=== PATIENT | female | born 1960 | race Caucasian/White ===

== ENCOUNTER 2019-11-22 17:14 | Outpatient (CLI) | payer OTHER | END 2019-11-22 17:15 | disposition home or self-care (01) | LOC: COV 17:14 | PROVIDERS: ATTEND Family Medicine | DX: R50.9 Fever, unspecified (principal); Z20.828 Contact with and (suspected) exposure to other viral communicable diseases; R06.02 Shortness of breath; R09.81 Nasal congestion; R53.83 Other fatigue; R19.7 Diarrhea, unspecified; M79.10 Myalgia, unspecified site ==

== ENCOUNTER 2022-04-21 09:39 | Outpatient (CLI) | payer OTHER ==
[2022-04-21 09:56] VITALS: BP 126/74
--- NOTE | 2022-04-21 09:56 | SLEEP CARE CONSULTATION ---
Information from patient questionnaire entered by Kody Goldman. I have reviewed and concur with the information entered by Kody Goldman. This document represents the service I personally performed and the decisions made by me, Rose Gaitan ARNP. History of Present Illness Service Date and Time: 04/21/2022 0939 Reason for Visit: New patient, Previously diagnosed sleep apnea, sleep apnea on CPAP therapy Chief Complaint: reports: Unrefreshed sleep, Snoring, Frequent awakenings at night Date of Onset: 7MONTHS Usual bedtime: 10PM Time it takes to fall asleep: DEPENDS ON THE NIGHT AND WORK SCHEDULE Snores at night: Yes Observed to quit breathing while asleep: Yes Number of times waking at night: 3-4 Reasons for waking at night: reports: Other (UNKNOWN) Toss, Turn, or Twitch while sleeping: No Recalls having dreams: No Usually gets out of bed at: 5AM Feels refreshed in the morning: No Morning headache: Yes (RESOLVES AROUND 11AM) Sleepy or fatigued during the day: Yes Ever fallen asleep while driving: Yes Takes day naps: No Dreams during day naps: No Prior sleep studies: Yes ([facility] 1994) Additional HPI information: MARILU Marquez was previously diagnosed at [facility] to have moderate (noted on Titration study dated 05-19-2018), AHI unknown, obstructive sleep apnea-hypopnea syndrome and comes in today to establish care for BIPAP therapy. She states Dr. Chávez encouraged her to do a nebulizer treatment before she goes to bed. She is able to go to sleep but will still wake up several times a night. Sometimes it is because her mask is "whistling" and other unknown reasons. She states that her oxygen saturations are dropping at night and she is snoring when on her BIPAP at night. - Parasomnia Symptoms Ever been unable to move upon waking from sleep: No Walks in sleep: No Talks in sleep: No Ever acted out dreams in sleep: No Ever felt weak in the knees when startled or emotional: No Bothered by creepy, crawly, restless sensations in legs: No Problems with memory or concentration: No CPAP Compliance Data - Data Reviewed with Patient Average duration of nightly device use: 7 hours 19 minutes Compliance rate %: 100 (30/30 days used) Current pressure setting (cmH2O): 16 max/ Epap 8 with 10 pressure support: 5 with 4 pressure support Average residual AHI: 0.4 Central apnea: 0 Obstructive apnea: 0.1 Hypopnea: 0.3 Average large leak: 0 Compliance data discussion: She states she has a Dreamstation BIPAP autoSV machine. She is using a full face, Dreamwear hybrid. She is getting her supplies from [facility]. Subjective Patient concerns: reports: mask leak noise. denies: aerophagia, mask discomfort, air blowing in eyes, condensation in mask/hose, nasal congestion, dry mouth, nose, throat, epistaxis Observed to snore while using device: Yes Current pressure setting perceived as: comfortable On therapy, patient: reports: sleeping better, awakening more refreshed, being more awake and alert during the day, more rested overall, other (cannot sleep without it). 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 Patient is and lives in [place]. Have you smoked in the past 12 months: No Years of smokin Quit date: 1993 Alcohol use: No Caffeine use: Yes Caffeine amount and frequency: 2-3 CUPS IN THE MORNING Family History Family history of sleep disordered breathing: Yes Family Hx Sleep Apnea: Father: Snoring Allergies and Home Medications Known drug allergies: Yes (IODINE; keflex) Drug allergies reviewed: Yes Home medication list reviewed: Yes (see updated list in EMR) Review of Systems Cardiovascular: reports: leg or foot swelling. denies: high blood pressure, irregular heart rate or pulse Respiratory: reports: shortness of breath, wheeze Gastrointestinal: reports: other (has reflux, controlled by diet and elevation of head/tums) Neurological: denies: headaches Psychiatric: denies: anxiety, depression Endocrine: reports: thyroid disease Physical Exam Vital signs obtained and entered by: KODY Ambrosio MA Blood Pressure: 126/74 (LEFT ARM) Cuff size: regular Heart Rate: 83 O2 Saturation: 94 Height: 5 ft 5 in Weight: 214 lb 9.6 oz Body Mass Index: 35.6 BMI Classification: Obese Neck circumference: 16.25 Heart: regular rate and rhythm Lungs: wheeze (light, distance) Impression and Plan 1. Obstructive Sleep Apnea-Hypopnea Syndrome, moderate, with good treatment compliance and good apnea control. On CPAP therapy, the patient has better sleep quality and is more rested overall. She states that since October she has been having decreasing oxygen saturations when sleeping and daytime fatigue. She did a nocturnal oximetry test but has not gotten the results from Dr. Chávez because the clinic shut down. We will try to obtain the results of this test. She states she has been having more snoring and daytime sleepiness during the day and Dr. Chávez was trying to see if her oxygen level may be the cause. She does have a history of COPD and Alpha Antitrypsin deficiency Z. I feel it would be best that she follow up with Dr. Olmstead once we have copy of her oximetry test for any adjustments of her BiPAP ASV pressure settings. Patient's apnea severity and rationale for treatment to reduce apnea, improve sleep quality and reduce cardiovascular and cerebrovascular events was reviewed. I also reviewed the benefit of consistent device use of BiPAP for COPD. * Continue BIPAP pressure at 16 max pressure and max EPAP 8 cmH2O with 10 cmH2O pressure support and min EPAP 5 with 4 cmH2O pressure support. * Update supplies * Notify me if snoring with mask or feeling that the pressure is too much or too little * Attempt to lose weight * Call this office if any problems using CPAP * Return for follow up in 1-2 months, or sooner if concerns arise Counseling Topics: Spare mask, Weight loss health impact Follow up with Sleep Care in: 1-2 months Visit Type: In Office Time Spent with Patient (minutes): 48 Provider Statement: I spent 100% of the Face to Face Visit with the patient with greater than 50% spent counseling the patient and coordination of care.
== END 2022-04-21 09:40 | disposition home or self-care (01) ==
LOC: SC 09:39
PROVIDERS: ATTEND Nurse Practitioner Family
DX: G47.33 Obstructive sleep apnea (adult) (pediatric) (principal); E66.9 Obesity, unspecified; Z68.35 Body mass index [BMI] 35.0-35.9, adult
CPT/HCPCS: 99203; 99212

== ENCOUNTER 2022-05-31 09:40 | Outpatient (CLI) | payer OTHER ==
--- NOTE | 2022-06-02 13:10 | SLEEP CARE CONSULTATION ---
Information from patient questionnaire entered by Apple Goldman. I have reviewed and concur with the information entered by Apple Goldman. This document represents the service I personally performed and the decisions made by me, Vivian Hobbs MD, [facility]. History of Present Illness Service Date and Time: 05/31/2022 0940 Reason for follow up: other (6 WEEK F/U SD CARD NEEDED FOR DOWNLOAD AND PRESSURE CHANGES ) Prior sleep studies: Yes ([facility] 1994) HPI additional information: Ms. Rodriguez was diagnosed with moderate obstructive sleep apnea-hypopnea syndrome diagnosed at [facility] in [place] and prescribed with a BiPAP ASV device. Her AHI in 2007 was 22.8 and cathy oxygen saturation, 73%. She returned today for follow up of BiPAP therapy. She said she is on the BiPAP ASV because she has underlying enzyme-deficiency COPD and is waiting for a lung transplant. She said prior to [facility] closing down several months ago, an overnight pulse oximetry was ordered to see if she needed oxygen therapy. The test performed on 01/15/2022 showed average oxygen saturation to be 87% with 40 minutes spent with oxygen saturation at or below 88%. However, the test condition showed the test was performed with the patient on CPAP and oxygen supplement at 2 L/minute. Therefore, it is not valid to qualify the patient for oxygen therapy. Her BiPAP ASV is set at EPAP 5 8, pressure support 4 10, and max pressure = 16 cmH2O. The backup rate is AUTO. This produces residual AHI of 0.4. Average tidal volume is 489 mL. Average breath rate is 15. Percent of triggered breaths = 98,6%. Average air leak is 0 L/minute. The patient complains that the machine does not synchronize with her. She says that because of her lung conditions, she takes a long time to inhale and exhale. The machine will kick in a breath before she finishes exhaling. Sleep Study - Results Prior sleep studies: Yes ([facility] 1994) Subjective Initial [place]joy Sleepiness Scale score: 9 Allergies and Home Medications Allergy and home medication list: Allergies cephalexin [From Keflex] Allergy (Verified 05/28/22 09:34) iodine Allergy (Verified 05/28/22 09:34) Physical Exam Vital signs obtained and entered by: APPLE Ambrosio MA O2 Saturation: 88 (on room air at rest) Height: 5 ft 5 in Impression and Plan IMPRESSION: 1. Obstructive Sleep Apnea-Hypopnea Syndrome, moderate, with the patient using a BiPAP ASV. The setting appears effective but uncomfortable to t he patient. She also has been bothered by alarms from the machine. It is unclear why the patient is on a BiPAP ASV rather than a regular BiPAP (no mention of central sleep apnea or Tony-Rodríguez respiration anywhere in her records we have from [facility]). The sleep physicians titration study (05/26/2021) interpretation was contradictory. He said The CPAP titration study was graded out as optimal. Therefore, I would recommend nasal ASV. Because the patient feels that the device pushes in a breath before she can finish exhaling, I recommend turning the backup respiratory rate down to 8 breaths per minute instead of leaving it at the AUTO setting. The patient is reluctant to have the setting adjusted. She would like to discuss it with her dielectric embossing machine operator at the [facility] first. 2. Hypoxia. The overnight pulse oximetry performed last January showed hypoxia on positive airway pressure therapy. However, because it was also performed on oxygen supplement, the test cannot be used to qualify the patient form home oxygen therapy at night. However, we can use her awake resting oxygen saturation of 88% on room air to qualify her for 24-hoiur home oxygen therapy. The patient again is reluctant to use oxygen. She is under the impression that she will become dependent on it. She will discuss the use of oxygen with her dielectric embossing machine operator. PLAN: 1. Continue with BiPAP ASV at the current settings. The compliance/efficacy report shows that the setting is effective. The tidal volume and minute ventilation is plenty for her. 2. Consider setting the backup rate to manual if she again feels like the machine is pushing in a breath too soon. 3. The patient will discuss with her dielectric embossing machine operator at the [facility] regarding the use of oxygen. 4. Return for a follow up in two months. She is to bring her memory card. Follow up with Sleep Care in: 1-2 months Follow up with: Other (dielectric embossing machine operator) Visit Type: In Office Time Spent with Patient (minutes): 25 Provider Statement: I spent 100% of the Face to Face Visit with the patient with greater than 50% spent counseling the patient and coordination of care.
== END 2022-05-31 09:41 | disposition home or self-care (01) ==
LOC: SC 09:40
PROVIDERS: ATTEND Internal Medicine Pulmonary Disease
DX: G47.33 Obstructive sleep apnea (adult) (pediatric) (principal); R09.02 Hypoxemia
CPT/HCPCS: 99212; 99213